=== PATIENT | male | born 1995 | race Caucasian/White ===

== ENCOUNTER 2021-12-30 09:40 | Emergency (ER) | payer OTHER ==
[~2021-12-30] VITALS: Ht 175.3 cm; Wt 90.4 kg
[2021-12-30 09:44] VITALS: BP 132/93
--- NOTE | 2021-12-30 09:53 | NUR ---
PT AMB TO BED 11.
--- NOTE | 2021-12-30 09:53 | NUR ---
Asim massey in ED - 12/30/21 at 1002 by [email or web address] PT AMB TO BNED 11.
[2021-12-30] MEDS ORDERED: KETOROLAC 60 MG/2 ML VIAL IM ONE (10:00)
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
[2021-12-30] MEDS ORDERED: IBUP-2213 PO (10:25)
[2021-12-30] MEDS ORDERED: ACET-8386 PO (10:25)
[2021-12-30 10:31] VITALS: BP 132/93
--- NOTE | 2021-12-30 10:31 | NUR ---
Patient discharged with v/s stable. Written and verbal after care instructions given and explained. Patient alert, oriented and verbalized understanding of instructions. Ambulatory with steady gait. All questions addressed prior to discharge. ID band removed. Patient advised to follow up with PMD. Rx of ibuprofen, norco (sent) given. Patient educated on indication of medication including possible reaction and side effects. Opportunity to ask questions provided and answered.
== END 2021-12-30 10:31 | disposition home or self-care (01) ==
LOC: MED 09:40
DX: S30.811A Abrasion of abdominal wall, initial encounter (principal); R07.89 Other chest pain; V89.2XXA Person injured in unspecified motor-vehicle accident, traffic, initial encounter; Y93.89 Activity, other specified; Y92.410 Unspecified street and highway as the place of occurrence of the external cause; Y99.8 Other external cause status
CPT/HCPCS: 96372; 99283; J1885

== ENCOUNTER 2022-01-02 15:54 | Emergency (ER) | payer OTHER ==
[~2022-01-02] VITALS: Ht 175.3 cm; Wt 89.8 kg
[~2022-01-02 15:54] MED LIST: ACET-8386 PO; IBUP-2213 PO
[2022-01-02 16:34] VITALS: BP 133/87
[2022-01-02] MEDS ORDERED: PRED20TA5 PO (19:28)
[2022-01-02 19:50] VITALS: BP 133/87
== END 2022-01-02 19:50 | disposition home or self-care (01) ==
LOC: MED 15:54
DX: S20.211A Contusion of right front wall of thorax, initial encounter (principal); V49.88XA Car occupant (driver) (passenger) injured in other specified transport accidents, initial encounter; Y93.89 Activity, other specified; Y92.89 Other specified places as the place of occurrence of the external cause; Y99.8 Other external cause status
CPT/HCPCS: 71101; 99284; Q0092